=== PATIENT | female | born 1970 | race Caucasian/White ===

== ENCOUNTER 2023-12-28 16:27 | Outpatient (REF) | payer BC, SELFPAY | END 2023-12-28 16:28 | disposition home or self-care (01) | LOC: LBN 16:27 | PROVIDERS: Visit Provider Physician Assistant Medical | DX: J02.9 Acute pharyngitis, unspecified (principal) | CPT/HCPCS: 87070 ==

== ENCOUNTER 2024-02-21 08:35 | Emergency (ER) | payer BC, SELFPAY ==
[2024-02-21 08:37] VITALS: BP 136/94; PULSE 102; RESP 16; TEMP 37.2; O2SAT 98
[2024-02-21 09:14] VITALS: BP 131/100; PULSE 72; RESP 15; O2SAT 99
[2024-02-21] MEDS: predniSONE 20 MG TAB 40 MG PO (09:38)
--- NOTE | 2024-02-21 10:47 | ED.GENADUL_ITS ---
Discharge Plan Disposition Patient Disposition: Home Discharge Details Clinical Impression: Piriformis syndrome Primary Care Provider: Unknown,Unknown ED Provider: Luann Graham Home Meds and New Rx's Prescriptions: New prednisone 20 mg tablet 40 mg PO ONCE Qty: 8 0RF cyclobenzaprine 10 mg tablet 10 mg PO TID PRNQty: 15 0RF Discharge Instructions Instructions: Piriformis Syndrome (ED) Additional Instructions: Take the prednisone as prescribed, you received a dose today in the emergency department take your next dose tomorrow for total of 5 days You may take Flexeril as needed for musculoskeletal pain, this may cause some drowsiness I recommend taking it at night and do not combine with alcohol or take if you need to drive Please follow-up with your primary care doctor in 1 week for reassessment and placing a physical therapy referral Return earlier should he have new or worsening complaints Stand Alone Forms: Physical Therapy Referral Discharge Data Discharge Date/Time-TO BE ENTERED AT DEPARTURE: 02/21/24 09:42 HPI General Date/Time Provider Initiated Documentation: 02/21/24 08:58 . HPI Narrative: This 54-year-old female with history of hypertension presents with report of back pain which radiates into her left leg. She states this started after running approximately 6 weeks ago. She is been taking ibuprofen without alleviation of pain. She states when she gets up and moves around she feels improvement but sitting and initial movements are painful. She states it is worse with pressure and sitting. She denies any sensation changes to extremities. She denies any fever chills or history of illicit drug use. She has any abdominal pain, chance of , or blood in urine or frequency. She denies any groin numbness. Related Data Home Medications Medication Instructions Recorded Confirmed cyclobenzaprine 10 mg tablet 10 mg PO TID PRN #15 tabs 02/21/24 prednisone 20 mg tablet 40 mg (2 x 20 mg) PO ONCE #8 tabs 02/21/24 Previous Rx's Medication Instructions Recorded cyclobenzaprine 10 mg tablet 10 mg PO TID PRN #15 tabs 02/21/24 prednisone 20 mg tablet 40 mg (2 x 20 mg) PO ONCE #8 tabs 02/21/24 Allergies Allergy/AdvReac Type Severity Reaction Status Date / Time No Known Allergies Allergy Verified 02/21/24 08:41 General Stated Complaint: Nk/Back Pain LEONORA: 3 Exam Narrative Exam Narrative: Alert and oriented 54-year-old female in no acute distress presenting with pain near the sacroiliac region, tenderness reproduced with hip movement abduction and abduction, neurovascularly intact bilateral lower extremities. No abdominal bruit or pulsatile mass, DTRs intact bilateral lower extremities, sensation intact to bilateral lower extremities. Negative straight leg raise Course Vital Signs Vital signs: Vital Signs Temperature 37.2 C 02/21/24 08:37 Pulse 102 H 02/21/24 08:37 Respiratory Rate 16 02/21/24 08:37 Blood Pressure 136/94 H 02/21/24 08:37 Pulse Oximetry 98 02/21/24 08:37 Temperature 37.2 C 02/21/24 08:37 Temperature Source Skin 02/21/24 08:37 Pulse 72 02/21/24 09:14 Respiratory Rate 15 02/21/24 09:14 Respiratory Effort Normal, Non-Labored 02/21/24 08:48 Blood Pressure 131/100 H 02/21/24 09:14 Blood Pressure Position Sitting 02/21/24 08:37 Pulse Oximetry 99 02/21/24 09:14 Oxygen Delivery Method Room Air 02/21/24 08:37 Oxygen Flow Rate 0 02/21/24 08:37 Pain Level 8 02/21/24 08:37 Comment using heating pad tylenol last night and 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 On initial assessment patient appears in no acute distress. There are no findings on her physical exam consistent with cauda equina syndrome. My concern is for piriformis syndrome with her exam findings. There is no clear evidence that this is sciatica or even a lumbar radiculopathy. She has been taking ibuprofen without relief in pain I will give her a short course of steroids she will try some Flexeril. I also given some stretching exercises which patient may perform at home and a physical therapy referral. 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 At this time she is in no acute distress. She is encouraged to follow-up with PT and her primary care physician and return earlier should she have new or acute worsening complaints. I see no indication for x-ray at this time, there is no specific reproducible tenderness, however should her pain continue imaging may be warranted at the discretion of the provider. Quality:SDOH Health Related Social Needs: No Data to Display PFSH All Active Problems (Updated 02/21/24 @ 09:17 by JULIAN Magdaleno) Piriformis syndrome (Acute) Social History Smoking/Tobacco Use Status: Never Smoking risk assessment performed?: Yes Alcohol Intake: current Alcohol Intake frequency: a few times a week Alcohol type: wine Drug use: Never Substance use type: does not use Housing: house Do you feel safe at home: Yes Do you feel safe in your relationship?: Yes
== END 2024-02-21 09:42 | disposition home or self-care (01) ==
LOC: ER 09:50
PROVIDERS: Emergency Provider Physician Assistant
DX: G57.02 Lesion of sciatic nerve, left lower limb (principal)
CPT/HCPCS: 99283; J7512

== ENCOUNTER 2025-03-31 18:25 | Outpatient (REF) | payer OTHER, SELFPAY ==
[2025-03-31 21:22] LABS: Abs Immature Grans 0.02 10^3/uL (0.0-0.06); Absolute Basophil Count 0.02 10^3/uL (0.0-0.2); Absolute Eosinophil Count 0.08 10^3/uL (0.0-0.7); Absolute Lymphocyte Count 3.05 10^3/uL (1.2-3.4); Absolute Monocyte Count 0.56 10^3/uL (0.1-0.8); Absolute Neutrophil Count 3.47 10^3/uL (1.2-6.7); Basophils % 0.3 %; Eosinophils % 1.1 %; HCT 37.4 % (36.0-46.0); HGB 12.8 g/dL (11.2-15.7); Immature Grans % 0.3 %; Lymphocytes % 42.4 %; MCH 30.2 pg (27.0-33.0); MCHC 34.2 % (32.0-36.0); MCV 88 fL (80-95); MPV 10.7 fL (8.0-11.0); Monocytes % 7.8 %; Neutrophils % 48.1 %; Platelet Count 231 10^3/uL (130-400); RBC 4.24 10^6/uL (3.93-5.22); RDW-SD 41.8 fL
== END 2025-03-31 18:26 | disposition home or self-care (01) ==
LOC: LBN 18:25
PROVIDERS: PCP Physician Assistant; Visit Provider Nurse Practitioner Family
DX: R22.1 Localized swelling, mass and lump, neck (principal)
CPT/HCPCS: 85025